=== PATIENT | male | born 1950 | race African-American/Black ===

== ENCOUNTER → 2017-05-23 | Outpatient (CLI) | payer MEDICARE ==
[~2017-05-23] MED LIST: BUSPAR DIVIDOSE15 MG PO; CARDIZEM CD300 MG; CARDIZEM CD300 MG PO; COZAAR100 MG PO; DIOVAN80 M1 PO; FLOMAX 0.40.4 MG/CAP PO; FLOMAX0.4 MG PO; FOLIC ACID 11 MG/TA1 PO; IMITREX100 MG PO; MOTRIN 800800 MG/TAB PO; NEURONTIN800 MG PO; PAXIL CR25 MG PO; PERCOCET 325 MG1 TA2 PO; PREDNISONE20 MG PO; ROBAXIN500 MG PO; TIAZAC300 MG PO; ULTRAM50 MG PO; VICODIN 5/5001 UDTAB PO
== END ==
LOC: COL.RAD 07:29
DX: Z13.6 Encounter for screening for cardiovascular disorders (principal); F17.200 Nicotine dependence, unspecified, uncomplicated; I70.0 Atherosclerosis of aorta; I70.8 Atherosclerosis of other arteries

== ENCOUNTER 2019-10-19 14:11 | Emergency (ER) | payer MEDICARE ==
[~2019-10-19] VITALS: Ht 175.3 cm; Wt 59.1 kg
[2019-10-19 14:13] VITALS: TEMP 99
[2019-10-19 15:14] LABS: BASO % 0.2 % (0.0-2.0); GRAN # 9.7 (1.4-6.5); GRAN % 82.5 % (42.2-75.2); HEMATOCRIT 40.4 % (42.0-52.0); HEMOGLOBIN 13.1 g/dl (13.5-18.0); LYMPH # 1.1 (1.2-3.4); LYMPH % 9.7 % (20.0-51.0); MEAN CELL VOLUME 80 fl (80.0-100.0); MEAN CORPUSCULAR HEMOGLOBIN 26 pg (27.0-31.0); MEAN CORPUSCULAR HGB CONC 32 g/dl (33.0-37.0); MEAN PLATELET VOLUME 11.5 fl (7.4-10.4); MONO # 0.9 (0.1-0.6); MONO % 7.2 % (1.7-9.3); PLATELET COUNT 254 K/mm3 (130-400); RED BLOOD COUNT 5.06 M/mm3 (4.20-5.60); REDCELL DISTRIBUTION WIDTH-CV 14.9 % (11.5-14.5)
[2019-10-19 15:22] LABS: INR 1.1 (0.8-3.0); PROTHROMBIN TIME 12.4 SECONDS (9.7-12.8)
[2019-10-19 15:35] LABS: ALANINE AMINOTRANSFERASE 7 U/L (21-72); ALBUMIN 4.6 gm/dL (3.5-5.0); ALKALINE PHOSPHATASE 90 U/L (50-136); ANION GAP 10 mmol/L (7-16); AST,SGOT 25 U/L (15-37); BILIRUBIN,TOTAL 0.7 mg/dL (0.0-1.0); BLOOD UREA NITROGEN 12 mg/dL (9-20); C-REACTIVE PROTEIN 2.3 mg/dL (0.0-0.9); CALCIUM 9.8 mg/dL (8.4-10.2); CARBON DIOXIDE 24 mmol/L (22-30); CHLORIDE 102 mmol/L (98-107); CREATINE KINASE 171 U/L (55-170); CREATININE, serum 1.06 (0.66-1.25); GLUCOSE 154 mg/dL (74-106); POTASSIUM 3.5 mmol/L (3.4-5.0); SODIUM 137 mmol/L (137-145); TOTAL PROTEIN 8.1 gm/dL (6.4-8.2)
[2019-10-19 15:43] LABS: ALCOHOL(ethanol),MEDICAL < 10 mg/dL
[2019-10-19 15:44] LABS: TROPONIN-I 0.018 ng/mL (0.000-0.035)
[2019-10-19 15:50] LABS: COLLECTION METHOD CLEAN CATCH
[2019-10-19 16:03] LABS: MUCOUS Present /lpf; PH 7 (5-8); SQUAMOUS EPITHELIAL 0-2 /hpf; URINE APPEARANCE Clear; URINE BACTERIA None Seen /hpf; URINE BILIRUBIN Negative (NEGATIVE); URINE BLOOD Negative (NEGATIVE); URINE COLOR Yellow; URINE GLUCOSE Negative (NEGATIVE); URINE KETONE Trace (NEGATIVE); URINE LEUKOCYTE ESTERASE Negative (NEGATIVE); URINE NITRATE Negative (NEGATIVE); URINE PROTEIN(semi-quant) 2+ (NEGATIVE)
[2019-10-19 16:07] LABS: TRICYCLIC ANTIDEPRESS URINE NEGATIVE
[2019-10-19 16:58] VITALS: BP 139/80; PULSE 77
== END 2019-10-19 17:12 | disposition short-term general hospital (02) ==
LOC: COL.ER 14:11
PROVIDERS: Emergency Medicine
DX: I60.9 Nontraumatic subarachnoid hemorrhage, unspecified (principal); I10 Essential (primary) hypertension; F41.9 Anxiety disorder, unspecified; F32.9 Major depressive disorder, single episode, unspecified; F17.210 Nicotine dependence, cigarettes, uncomplicated
CPT/HCPCS: J2060; J7030; J7050

== ENCOUNTER → 2021-10-01 | Outpatient (CLI) | payer MEDICARE | LOC: COL.RAD 09:56 | DX: Z12.2 Encounter for screening for malignant neoplasm of respiratory organs (principal); R91.1 Solitary pulmonary nodule; Z87.891 Personal history of nicotine dependence ==

== ENCOUNTER → 2021-10-16 | Outpatient (CLI) | payer MEDICARE ==
[~2021-10-16] MED LIST changes: +DITROPAN XL 5MG5 M1 PO; +LIPITOR 40MG TA40 MG PO; +MELATONIN5 M1 SL; +NATURAL IRON65 MG PO; +NEURONTIN300 MG/CAP PO; +TAZTIA180 PO
== END ==
LOC: COL.RAD 10-12 12:00
DX: E04.2 Nontoxic multinodular goiter (principal)

== ENCOUNTER 2024-04-26 08:19 | Day surgery (SDC) | payer MEDICARE, OTHER ==
[~2024-04-26] VITALS: Ht 175.3 cm; Wt 64.8 kg
[~2024-04-26 08:19] MED LIST changes: +LR 1,000 ML IV SCH; +Ondansetron 4 MG/2 ML VIAL IV PRN
[2024-04-26 10:01] VITALS: BP 157/95; PULSE 63; TEMP 97.2
[2024-04-26] MEDS ORDERED: COZAAR100 MG PO (10:08)
[2024-04-26 10:15] VITALS: BP 133/87; PULSE 56; TEMP 97.5
[2024-04-26 10:30] VITALS: BP 150/92; PULSE 56
[2024-04-26 10:45] VITALS: BP 151/91; PULSE 56
--- NOTE | 2024-04-26 11:05 | NUR ---
1015 RETURNS TO ROOM 4 PER CART. AWAKE, ALERT. RESP UNLABORED. AMBULATES TO RECLINER WITH STANDBY ASSIST. DENIES NAUSEA OR ABD PAIN. VITAL SIGNS OBTAINED. CALL LIGHT AT SIDE, DAUGHTER HERE. 1030 TOLERATES PO JUICE WITHOUT NAUSEA. 1035 DISCHARGE INSTRUCTIONS REVIEWED. PATIENT VERBALIZES UNDERSTANDING. COPY PROVIDED IN DISCHARGE FOLDER. 1040 IV SITE JAVIER'D. DRESSES SELF. SITS IN RECLINER WAITING FOR DRFranklin VISIT 1055 DR. FAUST HERE TO SEE PATIENT.
== END 2024-04-26 11:05 | disposition home or self-care (01) ==
LOC: SDCO 08:19
DX: Z12.11 Encounter for screening for malignant neoplasm of colon (principal); Z86.010 Personal history of colon polyps; K57.30 Diverticulosis of large intestine without perforation or abscess without bleeding; Z87.891 Personal history of nicotine dependence; Z86.73 Personal history of transient ischemic attack (TIA), and cerebral infarction without residual deficits
CPT/HCPCS: J2704; J7120